=== PATIENT | male | born 1980 | race Caucasian/White ===

== ENCOUNTER 2017-12-04 10:14 | Day surgery (SDC) | payer OTHER ==
[~2017-12-04 10:14] MED LIST: ACETAMINOPHEN 1,000 MG/100 ML BTL IV ONE; CLINDAMYCIN 600MG/50ML PREMIX 600 MG/50 ML BAG IVPB ONE
[2017-12-04] MEDS ORDERED: KETOROLAC 30 MG/ML VIAL IVP ONE (10:15)
[2017-12-04] MEDS ORDERED: DEXAMETHASONE 4 MG/ML 1ML VIAL IVP ONE (10:15)
[2017-12-04] MEDS ORDERED: NEOSTIGMINE 1 MG/1 ML,10ML VIAL IV ONE (10:15)
[2017-12-04] MEDS ORDERED: LIDOCAINE 1% MDV (10MG/ML) 20ML VIAL SQ ONE (10:15)
[2017-12-04] MEDS ORDERED: SEVOFLURANE 250 ML INH ONE (10:15)
[2017-12-04] MEDS ORDERED: GLYCOPYRROLATE 0.2 MG/ML ML IV ONE (10:15)
[2017-12-04] MEDS ORDERED: MIDAZOLAM HCL 2MG/2ML VIAL IV ONE (10:15)
[2017-12-04] MEDS ORDERED: PROPOFOL 10 MG/ML VIAL IV ONE (10:15)
[2017-12-04] MEDS ORDERED: BUPIVACAINE 0.5% (5MG/ML) PF 30ML VIAL IVP ONE (10:15)
[2017-12-04] MEDS ORDERED: SUCCINYLCHOLINE 20 MG/ML 10ML IVP ONE (10:15)
[2017-12-04] MEDS ORDERED: ONDANSETRON HCL IV 4 MG/2 ML VIAL IVP ONE (10:15)
[2017-12-04] MEDS ORDERED: ROCURONIUM BROMIDE 50MG/5ML VIAL IV ONE (10:15)
[2017-12-04] MEDS ORDERED: BUPIVACAINE LIPOSOME/PF 133MG/10ML VIAL IV ONE (10:15)
[2017-12-04] MEDS ORDERED: FENTANYL PF 100MCG/2ML VIAL IV ONE (10:15)
--- NOTE | 2017-12-05 14:31 | Operative Note ---
DATE OF SURGERY: 12/04/2017 Surgeon: Etienne Capone DO PREOPERATIVE DIAGNOSIS: Comminuted displaced fracture of the left clavicle midshaft. POSTOPERATIVE DIAGNOSIS: Comminuted displaced fracture of the left clavicle midshaft. OPERATION: Open reduction and internal fixation midshaft left distal clavicle. DESCRIPTION OF PROCEDURE: This 37-year-old male was taken to the operating room and placed in the supine position on the operating room table. General anesthetic was induced. He was then placed in the beach chair position with all bony prominences well padded and the head well secured. The left shoulder was prepped with Hibiclens and draped in the usual sterile fashion. An incision was made on the surface of the clavicle centering over the midshaft at the fracture site. Dissection carried down through the skin and subcutaneous tissue. The periosteum identified and incised. The ends of the fracture exposed. The additional fragments were then also easily identified. The wound was irrigated to remove clot and debris. We then identified the ends of the bone, and the fracture was a double butterfly type configuration. The pieces of bone that needed to interdigitate were basically culminating in a point. This made the reduction and holding this reduction a little bit more difficult, and so we decided to secure the plate first to the proximal fragment after we had determined the appropriate size plate. Once this was accomplished, we manipulated the distal fragment to bring it up to the plate and the proximal fragment was suppressed back to its normal position and the distal fragment elevated up to the plate. Then a plate clamp was used to secure the plate to the distal fragment in the appropriate position. Once this had been accomplished, additional screws were then placed in the distal fragment to secure it into place. We then used #2 FiberWire suture to pass around the comminuted fragments to bring them into the defect under the plate. These fracture fragments had excellent soft tissue coverage and were felt to be good to supplement bone healing. The wound was then irrigated with lactated Ringer's solution and subsequently the periosteum was reapproximated with 3-0 Vicryl. The subcutaneous tissue closed with 3-0 Vicryl and the skin with a running 4-0 nylon suture. Sterile dressings with a sling were applied, and the patient was taken to the recovery room in satisfactory condition. GROSS PATHOLOGY: This patient demonstrated a severely comminuted fracture of the clavicle midshaft and widely displaced. It was brought together in the manner described above and held with an Arthrex clavicular plate and cortical screws were used in the manner described above. PHAN
== END 2017-12-04 14:20 | disposition home or self-care (01) ==
LOC: SUR 10:14
PROVIDERS: ATTEND Orthopaedic Surgery
DX: S42.022A Displaced fracture of shaft of left clavicle, initial encounter for closed fracture (principal)
CPT/HCPCS: 23515; 00450; J1885; J2405; J3010; C9290; J0330; J2710